=== PATIENT | female | born 1950 | race Caucasian/White ===

== ENCOUNTER → 2019-04-15 07:02 | Outpatient (CLI) | payer MEDICARE, SELFPAY ==
[2019-04-15 08:30] LABS: BUN Creatinine Ratio 28.9 (6-22); Blood Urea Nitrogen 26 mg/dL (7-17); Calcium 10.2 mg/dL (8.4-10.2); Carbon Dioxide 29 mmol/L (22-32); Chloride 101 mmol/L (98-107); Cholesterol 253 mg/dL (140-199); Estimated Glomerular Filt Rate > 60.0 mL/min (>60); Glucose 95 mg/dL (80-110); HDL Cholesterol 73 mg/dL (40-60); HEMOLYSIS < 15 (0-50); LDL Cholesterol Calculated 160 mg/dL (<100); Potassium 3.8 mmol/L (3.4-5.1); Sodium 138 mmol/L (137-145); Triglycerides 100 mg/dL (35-150)
[2019-04-15 09:02] LABS: Vitamin D 25 Hydroxy (D3) 46.3 ng/mL (30.0-100.0)
[2019-04-15 09:22] LABS: TSH w/ Reflex to FT4 2.01 uIU/mL (0.47-4.68)
== END ==
PROVIDERS: PCP Student in an Organized Health Care Education/Training Program; Visit Provider Student in an Organized Health Care Education/Training Program
DX: I10 Essential (primary) hypertension (principal); E78.00 Pure hypercholesterolemia, unspecified; E55.9 Vitamin D deficiency, unspecified; F41.9 Anxiety disorder, unspecified
CPT/HCPCS: 36415; 80048; 80061; 82306; 84443

== ENCOUNTER → 2019-05-14 12:57 | Outpatient (CLI) | payer MEDICARE, SELFPAY ==
--- NOTE | 2019-05-14 12:59 | DI.MG.S_ITS ---
BILATERAL DIGITAL SCREENING MAMMOGRAM 3D/2D WITH CAD: 05/14/2019 CLINICAL: Routine screening. Baseline exam. No prior exams were available for comparison. The tissue of both breasts is heterogeneously dense. This may lower the sensitivity of mammography. Current study was also evaluated with a Computer Aided Detection (CAD) system. There are benign vascular calcifications in both breasts. No significant masses, calcifications, or other findings are seen in either breast. IMPRESSION: There is no mammographic evidence of malignancy. A 1 year screening mammogram is recommended. This exam was interpreted at Station ID: [id number]. NOTE: For mammograms, a report in lay terms will be sent to the patient. Approximately 15% of breast malignancies will not be visualized mammographically. In the management of a palpable breast mass, a negative mammogram must not discourage biopsy of a clinically suspicious lesion. Electronically Signed By: Tonio bauman/benji:05/16/2019 08:38:15 letter sent: Normal Exam ACR BI-RADS Category 2: Benign Finding(s) 3342F
== END ==
PROVIDERS: PCP Student in an Organized Health Care Education/Training Program; Visit Provider Student in an Organized Health Care Education/Training Program
DX: Z12.31 Encounter for screening mammogram for malignant neoplasm of breast (principal)
CPT/HCPCS: 77063; 77067

== ENCOUNTER → 2019-05-18 14:06 | Outpatient (CLI) | payer MEDICARE, SELFPAY | PROVIDERS: PCP Student in an Organized Health Care Education/Training Program; Visit Provider Student in an Organized Health Care Education/Training Program | DX: Z13.820 Encounter for screening for osteoporosis (principal); M81.0 Age-related osteoporosis without current pathological fracture; Z78.0 Asymptomatic menopausal state; Z82.62 Family history of osteoporosis | CPT/HCPCS: 77080 ==

== ENCOUNTER 2020-06-06 15:56 | Emergency (ER) | payer MEDICARE, SELFPAY ==
[2020-06-06 16:00] VITALS: BP 178/101; PULSE 85; RESP 20; TEMP 36.6; O2SAT 98
[2020-06-06] MEDS: TET,DIPH,PERTUSS(ACELL),VAC/PF 0.5 ML SYRINGE IM (16:32)
--- NOTE | 2020-06-06 18:14 | ED.WOUNDLAC ---
HPI - Wound/Laceration <LEIANE Canales - Last Filed: 06/06/20 18:18> General Chief Complaint: Wound/Laceration Stated Complaint: LACERATION TO MIDDLE FINGER LEFT HAND Time Seen by Provider: 06/06/20 16:05 Source: patient Mode of arrival: Ambulatory History of Present Illness HPI narrative: 69-year-old female presenting to the emergency department for laceration to the tip of her 3rd right finger. Patient states she was using a mandoline when it slipped, it had been bleeding for approximately a half. Patient states when she arrived to the emergency department and the bandages were removed she noted the bleeding has stopped. Patient states her last Tdap was in 2011. She denies any numbness, tingling, other injuries, swelling, discharge, fevers, or chills. Related Data Previous Rx's Medication Instructions Recorded alendronate 70 mg tablet 70 mg PO QWEEK #90 tab 05/26/19 lisinopril 20 1 tab PO DAILY #90 tab 07/19/19 mg-hydrochlorothiazide 25 mg tablet Allergies Allergy/AdvReac Type Severity Reaction Status Date / Time crab [CRAB] Allergy Severe ANAPHYLACTIC Verified 03/18/18 16:03 SHOCK Review of Systems <ELIANE Canales - Last Filed: 06/06/20 18:18> Review of Systems Narrative: REVIEW OF SYSTEMS: GENERAL: Denies fever or chills. HENT: Denies head trauma. MUSCULOSKELETAL: Denies other injury, see HPI. INTEGUMENTARY: Complains of laceration to of right 3rd finger, see HPI. NEURO: Denies numbness or tingling. Patient History <ELIANE Canales - Last Filed: 06/06/20 18:18> Medical History Anxiety (06/26/15) Anxiety Chronic headaches Essential hypertension (06/26/15) Hyperlipemia Hypertension Pure hypercholesterolemia (06/24/16) Surgical History No history of previous surgery Social History Smoking Status: Former smoker Smoking Status: Former smoker Exam <ELIANE Canales - Last Filed: 06/06/20 18:18> Initial Vital Signs Initial Vital Signs: Vital Signs Temperature 97.9 F 06/06/20 16:00 Pulse Rate 85 06/06/20 16:00 Respiratory Rate 20 06/06/20 16:00 Blood Pressure 178/101 H 06/06/20 16:00 Pulse Oximetry 98 06/06/20 16:00 PHYSICAL EXAMINATION: GENERAL: Well groomed, alert, and cooperative. Answers questions promptly and appropriately. HENT: Normocephalic, atraumatic. RESPIRATORY: Normal respiratory rate, trachea midline, airway patent. No stridor, nasal flaring or accessory muscle use. MUSCULOSKELETAL: Normal gait and coordination. Equal tone and mass bilaterally. EXTREMITIES: CMS intact. Full range of motion against resistance of right 3rd finger. SKIN: Warm, dry, soft, appropriate color for ethnicity. There is a 1 cm superficial laceration noted to the tip of right 3rd finger, edges are approximated, bleeding is controlled upon arrival. No avulsions. NEURO: Alert and Oriented X 3. Good coordination. PSYCH: Appropriate affect and mood. <Ayden Hernandez DO - Last Filed: 06/07/20 07:11> Initial Vital Signs Initial Vital Signs: Vital Signs Temperature 97.9 F 06/06/20 16:00 Pulse Rate 85 06/06/20 16:00 Respiratory Rate 20 06/06/20 16:00 Blood Pressure 178/101 H 06/06/20 16:00 Pulse Oximetry 98 06/06/20 16:00 Procedures <ELIANE Canales - Last Filed: 06/06/20 18:18> Laceration Repair Laceration 1: Site: upper extremity Side (If applicable): right Size (cm): 1 Description: linear Depth: simple, single layer Skin layer closed with: dermabond Course <ELIANE Canalse - Last Filed: 06/06/20 18:18> Orders Ordered: Discontinued Medications Diphtheria/Tetanus/Acell Pertussis (Tet,Diph,Pertuss(Acell),Vac/Pf 0.5 Ml Syringe) 0.5 ml IM .ONCE ONE Stop: 06/06/20 16:26 Last Admin: 06/06/20 16:32 Dose: 0.5 ml Documented by: LESLEY Vital Signs Vital signs: Vital Signs - 8 hr 06/06/20 16:00 Temperature 97.9 F Pulse Rate 85 Respiratory Rate 20 Blood Pressure 178/101 H Pulse Oximetry 98 <Ayden Hernandez DO - Last Filed: 06/07/20 07:11> Orders Ordered: Discontinued Medications Diphtheria/Tetanus/Acell Pertussis (Tet,Diph,Pertuss(Acell),Vac/Pf 0.5 Ml Syringe) 0.5 ml IM .ONCE ONE Stop: 06/06/20 16:26 Last Admin: 06/06/20 16:32 Dose: 0.5 ml Documented by: LESLEY Vital Signs Vital signs: Vital Signs - 8 hr 06/06/20 16:00 Temperature 97.9 F Pulse Rate 85 Respiratory Rate 20 Blood Pressure 178/101 H Pulse Oximetry 98 MDM - Wound/Laceration <ELIANE Canales - Last Filed: 06/06/20 18:18> Medical Records Attestation: I reviewed the patient's medical records. Lab Data Attestation: I reviewed the patient's lab results. MDM Narrative Medical decision making narrative: 69-year-old female presents emergency department for a laceration. Upon examination, bleeding controlled laceration appears fairly superficial, no concern for tendon involvement given location and full range of motion of finger against resistance. Small amount of Dermabond was placed to the wound to prevent further bleeding. Tdap was updated as last tetanus was greater than 5 years ago. She was counseled extensively about signs of infection and when to return. Patient agreed to plan of care verbalized understanding. She was given a finger splint per request as she has lots of cooking to the wound would like her finger to be protected. Discharge Plan Departure Patient Disposition: Home Clinical Impression: Laceration Instructions: DI for Laceration Repair Activity Restrictions/Additional Instructions: Thank you for entrusting me with your care today. As discussed, a small amount of glue was placed on your laceration today. Please refrain from placing any bacitracin or Neosporin over the wound for the next 3 days as it will dissolve the glue too quickly. Avoid soaking her hand in any water for long periods of time. Showers are okay, washing your hands with soap and water is okay. While there is low-risk for infection at this time, retained foreign bodies and infection are always possible with any cut or break in the skin. Please monitor the wound closely and be re-evaluated immediately if you develop any signs of infection such as pus, increasing redness, increasing pain, fevers, or any other concerns. Prescriptions: No Action alendronate 70 mg tablet 70 mg PO QWEEK Qty: 90 RF: 1 lisinopril-hydrochlorothiazide 20-25 mg tablet 1 tab PO DAILY Qty: 90 RF: 1 Referrals: Kaleb Grover MD [Primary Care Provider] - <Ayden Hernandez DO - Last Filed: 06/07/20 07:11> Cosign ED Attending Cosignature Attestation: Dr Hernandez Co-Sign Statement: I was available for consultation during this patient's emergency department visit. This chart is signed by myself for administrative purposes only. I did not have direct contact with this patient during this visit. They were seen independently by the APC.
== END 2020-06-06 16:42 | disposition home or self-care (01) ==
PROVIDERS: Emergency Provider Nurse Practitioner; PCP Student in an Organized Health Care Education/Training Program
DX: S61.212A Laceration without foreign body of right middle finger without damage to nail, initial encounter (principal); W26.8XXA Contact with other sharp object(s), not elsewhere classified, initial encounter; Z23 Encounter for immunization
CPT/HCPCS: 90471; 99282; 99283; STOP; 90715

== ENCOUNTER → 2020-08-07 09:47 | Outpatient (CLI) | payer MEDICARE, SELFPAY ==
[2020-08-07] MEDS: COVID-19 VACC #1, MRNA(MOD) 100 MCG/0.5 ML VIAL IM (09:55)
== END ==
PROVIDERS: PCP Student in an Organized Health Care Education/Training Program; Visit Provider Internal Medicine
DX: Z23 Encounter for immunization (principal)
CPT/HCPCS: 0011A; 91301

== ENCOUNTER → 2020-09-04 09:57 | Outpatient (CLI) | payer MEDICARE, SELFPAY ==
[2020-09-04] MEDS: COVID-19 VACC #2, MRNA(MOD) 100 MCG/0.5 ML VIAL IM (10:13)
== END ==
PROVIDERS: PCP Student in an Organized Health Care Education/Training Program; Visit Provider Internal Medicine
DX: Z23 Encounter for immunization (principal)
CPT/HCPCS: 0012A; 91301

== ENCOUNTER → 2021-03-27 07:15 | Outpatient (CLI) | payer MEDICARE, SELFPAY ==
[2021-03-27 09:04] LABS: BUN Creatinine Ratio 26.1 (6-22); Blood Urea Nitrogen 24 mg/dL (7-17); Calcium 10.2 mg/dL (8.4-10.2); Carbon Dioxide 33 mmol/L (22-32); Chloride 104 mmol/L (98-107); Cholesterol 255 mg/dL (140-199); Estimated Glomerular Filt Rate > 60.0 mL/min (>60); Glucose 99 mg/dL (80-110); HDL Cholesterol 79 mg/dL (40-60); HEMOLYSIS < 15 (0-50); LDL Cholesterol Calculated 157 mg/dL (<100); Potassium 3.6 mmol/L (3.4-5.1); Sodium 141 mmol/L (137-145); Triglycerides 93 mg/dL (35-150)
[2021-03-27 09:35] LABS: TSH w/ Reflex to FT4 1.55 uIU/mL (0.47-4.68)
== END ==
PROVIDERS: PCP Student in an Organized Health Care Education/Training Program; Referring Provider Student in an Organized Health Care Education/Training Program; Visit Provider Student in an Organized Health Care Education/Training Program
DX: I10 Essential (primary) hypertension (principal); E78.00 Pure hypercholesterolemia, unspecified; F41.9 Anxiety disorder, unspecified
CPT/HCPCS: 36415; 80048; 80061; 84443

== ENCOUNTER → 2021-04-25 10:02 | Outpatient (CLI) | payer MEDICARE, SELFPAY ==
--- NOTE | 2021-04-25 10:05 | DI.RAD.S_ITS ---
PROCEDURE: XR DEXA AXIAL SKELETON INDICATIONS: Osteoporosis surveillance COMPARISON: [facility], CR, XR DEXA AXIAL SKELETON, 05/18/2019, 14:38. FINDINGS: This blank DEXA report has been sent in error by the PACS system. The correct and complete report will be forthcoming in 1-2 days. Thank you for your patience and understanding. Dictated by: Ollie Tolbert M.D. on 04/25/2021 at 11:51 Approved by: Ollie Tolbert M.D. on 04/25/2021 at 11:52
== END ==
PROVIDERS: PCP Student in an Organized Health Care Education/Training Program; Referring Provider Student in an Organized Health Care Education/Training Program; Visit Provider Student in an Organized Health Care Education/Training Program
DX: M81.0 Age-related osteoporosis without current pathological fracture (principal); Z78.0 Asymptomatic menopausal state; M85.852 Other specified disorders of bone density and structure, left thigh; M85.851 Other specified disorders of bone density and structure, right thigh
CPT/HCPCS: 77080

== ENCOUNTER → 2021-05-03 15:21 | Outpatient (CLI) | payer MEDICARE, SELFPAY ==
--- NOTE | 2021-05-03 15:23 | DI.MG.S_ITS ---
BILATERAL DIGITAL SCREENING MAMMOGRAM 3D/2D WITH CAD: 05/03/2021 CLINICAL: Routine screening. Comparison is made to exam dated: 05/14/2019 [facility]. The tissue of both breasts is heterogeneously dense. This may lower the sensitivity of mammography. Current study was also evaluated with a Computer Aided Detection (CAD) system. There is a possible developing new irregular equal density asymmetry in the right breast at 11 o'clock middle depth. No other significant masses, calcifications, or other findings are seen in either breast. IMPRESSION: INCOMPLETE: NEEDS ADDITIONAL IMAGING EVALUATION The possible developing new irregular equal density asymmetry in the right breast is indeterminate. Additional views with possible ultrasound are recommended. This exam was interpreted at Station ID: [id number]. NOTE: For mammograms, a report in lay terms will be sent to the patient. Approximately 15% of breast malignancies will not be visualized mammographically. In the management of a palpable breast mass, a negative mammogram must not discourage biopsy of a clinically suspicious lesion. Electronically Signed By: Rosa moon/:05/06/2021 07:29:50 letter sent: Additional Imaging Needed ACR BI-RADS Category 0: Incomplete 3340F
== END ==
PROVIDERS: PCP Student in an Organized Health Care Education/Training Program; Referring Provider Student in an Organized Health Care Education/Training Program; Visit Provider Student in an Organized Health Care Education/Training Program
DX: Z12.31 Encounter for screening mammogram for malignant neoplasm of breast (principal)
CPT/HCPCS: 77063; 77067

== ENCOUNTER → 2021-05-27 08:33 | Outpatient (CLI) | payer MEDICARE, SELFPAY ==
--- NOTE | 2021-05-27 08:34 | DI.MG.S_ITS ---
UNILATERAL RIGHT DIGITAL DIAGNOSTIC MAMMOGRAM 3D/2D WITH ADDITIONAL VIEWS: 05/27/2021 CLINICAL: Additional evaluation requested from prior study. Comparison is made to exams dated: 05/03/2021 mammogram and 05/14/2019 mammogram - [facility]. The tissue of right breast is heterogeneously dense. This may lower the sensitivity of mammography. The benign irregular equal density asymmetry in the right breast at 11 o'clock middle depth is no longer seen. This is not seen in additional views. No other significant masses or calcifications are seen in the breast. IMPRESSION: BENIGN There is no mammographic evidence of malignancy. Return to annual mammogram screening schedule is recommended. This exam was interpreted at Station ID: [id number]. NOTE: For mammograms, a report in lay terms will be sent to the patient. Approximately 15% of breast malignancies will not be visualized mammographically. In the management of a palpable breast mass, a negative mammogram must not discourage biopsy of a clinically suspicious lesion. Electronically Signed By: Job Burks acr/:05/27/2021 09:08:37 letter sent: Normal Exam ACR BI-RADS Category 2: Benign Finding(s) 3342F
== END ==
PROVIDERS: PCP Student in an Organized Health Care Education/Training Program; Referring Provider Student in an Organized Health Care Education/Training Program; Visit Provider Student in an Organized Health Care Education/Training Program
DX: R92.8 Other abnormal and inconclusive findings on diagnostic imaging of breast (principal); N63.10 Unspecified lump in the right breast, unspecified quadrant
CPT/HCPCS: 77065; G0279

== ENCOUNTER → 2023-02-03 14:10 | Outpatient (CLI) | payer MEDICARE, SELFPAY ==
--- NOTE | 2023-02-03 14:11 | DI.MG.S_ITS ---
BILATERAL DIGITAL SCREENING MAMMOGRAM 3D/2D WITH CAD: 02/03/2023 CLINICAL: Routine screening. Comparison is made to exams dated: 05/03/2021 mammogram, 05/14/2019 mammogram, and 05/27/2021 mammogram - . Both breasts are heterogeneously dense, which may obscure small masses (category c / 51-75% glandular tissue). Current study was also evaluated with a Computer Aided Detection (CAD) system. No significant masses, calcifications, or other findings are seen in either breast. There has been no significant interval change. IMPRESSION: NEGATIVE There is no mammographic evidence of malignancy. A 1 year screening mammogram is recommended. Based on the Tyrer Cuzick model (a risk assessment model) the patient's lifetime risk is 4.9% and her 10 year risk is 3.1%. According to the ACR, ACS, and NCCN guidelines, an annual breast MRI exam along with mammogram is recommended if the patient's lifetime risk is 20% or greater. This exam was interpreted at Station ID: [id number]. NOTE: For mammograms, a report in lay terms will be sent to the patient. Approximately 15% of breast malignancies will not be visualized mammographically. In the management of a palpable breast mass, a negative mammogram must not discourage biopsy of a clinically suspicious lesion. Electronically Signed By: Keanu portillo/benji:02/03/2023 16:02:49 letter sent: Normal Exam ACR BI-RADS Category 1: Negative 3341F
--- NOTE | 2023-02-03 15:08 | DI.DEXA.S_ITS ---
Bone Density Report Name: L[facility] Age: 72 Sex: Female Ethnicity: White Date of : 1950 Indication: postmenopausal osteoporosis; Referring Provider: FRANC LEMA Study: Bone densitometry was performed. Exam Date: February 03, 2023 Accession number: [id number] Bone Density: Region BMD T-score Z-score Classification AP Spine(L1-L4) 0.624 -3.8 -1.7 Osteoporosis Femoral Neck (Left) 0.585 -2.4 -0.6 Osteopenia Total Hip (Left) 0.683 -2.1 -0.6 Osteopenia Femoral Neck (Right) 0.560 -2.6 -0.8 Osteoporosis Total Hip (Right) 0.672 -2.2 -0.7 Osteopenia Total Hip Mean 0.678 -2.2 -0.7 Osteopenia World Health Organization criteria for BMD impression classify patients as: Normal (T-score at or above -1.0), Osteopenia (T-score between -1.0 and -2.5), or Osteoporosis (T-score at or below -2.5). 10-year Fracture Risk: FRAX not reported because: Some T-score for Spine Total or Hip Total or Femoral Neck at or below -2.5 Previous Exams: -- Region Exam Age BMD T-score BMD Change BMD Change Date g/cm2 vs Baseline vs Previous -- AP Spine (L1-L4) 02/03/2023 72 0.624 -3.8 -0.070 (-10.1%)# -0.070 (-10.1%)# 04/25/2021 70 0.695 -3.2 Total Hip(Left) 02/03/2023 72 0.683 -2.1 -0.046 (-6.4%)# -0.046 (-6.4%)# 04/25/2021 70 0.730 -1.7 Total Hip(Right) 02/03/2023 72 0.672 -2.2 -0.056 (-7.7%)# -0.056 (-7.7%)# 04/25/2021 70 0.729 -1.7 -- *Denotes significance at 95% confidence level, LSC for AP Spine = 0.022 g/cm2, LSC for Total Hip = 0.027 g/cm2 # Denotes dissimilar scan types or analysis methods Impression: The patient has osteoporosis, based on the Total Spine T-score. No significant bone loss was observed. Discussion: INCREASED RISK OF FRACTURE. BONE DENSITY IS UNDESIRABLY LOW AT ONE OR MORE SKELETAL SITES, CONSISTENT WITH POSTMENOPAUSAL OSTEOPOROSIS. This patient's lowest T-score meets the World Health Organization's (WHO) criteria for osteoporosis at one or more sites (T-score -2.5 or below). In untreated patients, the risk of osteoporotic fracture increases approximately two-fold for each 1.0 SD decrease in T-score. Low bone density is not the only risk factor for fracture; also consider factors such as patient's age, frailty or poor health, risk of falling, risk of injury, previous osteoporotic fracture, family history of osteoporosis, cigarette smoking, low body weight, etc. Not everyone with low bone mineral density has osteoporosis; osteomalacia and other metabolic bone disorders should also be considered. Patients who have osteoporosis should be evaluated for specific diseases and conditions (secondary causes) that may cause or contribute to bone loss. The [place] [employer] Endocrinologists (AACE) and National Osteoporosis Foundation (NOF) recommend pharmacologic intervention for all postmenopausal women whose T-score is in this range. The patient should follow a healthful lifestyle (good nutrition with adequate calcium and vitamin D, and appropriate weight-bearing exercise). Follow-Up: Consider a repeat BMD and Vertebral Fracture Assessment (VFA) exam in 2 years or sooner if medically necessary, to reassess this patient's status. Reported by: ALEJANDRO PRATT M.D. on 02/03/2023 3:21:00 PM.
== END ==
PROVIDERS: PCP Pediatrics; Referring Provider Pediatrics; Visit Provider Pediatrics
DX: Z12.31 Encounter for screening mammogram for malignant neoplasm of breast (principal); Z78.0 Asymptomatic menopausal state; M81.0 Age-related osteoporosis without current pathological fracture
CPT/HCPCS: 77063; 77067; 77080

== ENCOUNTER → 2024-02-10 14:23 | Outpatient (CLI) | payer MEDICARE, SELFPAY ==
[2024-02-10 14:51] LABS: Hematocrit 38.3 % (36-46); Hemoglobin 12.6 g/dL (12.0-16.0); Mean Corpuscular HGB Conc 32.9 % (30-36); Mean Corpuscular Volume 91.1 fL (80-100); Platelet Count 308 X10^3/uL (150-400); Red Cell Distribution Width 14.1 % (11.6-14.8); White Blood Cell Count 5.5 X10^3/uL (4.5-11.0)
[2024-02-10 15:14] LABS: Alanine Aminotransferase 17 IU/L (<35); Albumin 4.5 g/dL (3.5-5.0); Albumin Globulin Ratio 1.6 (1.0-2.8); Alkaline Phosphatase 72 U/L (38-126); Aspartate Aminotransferase 31 IU/L (14-36); BUN Creatinine Ratio 24.4 (6-22); Bilirubin Total 0.4 mg/dL (0.2-1.3); Blood Urea Nitrogen 21 mg/dL (7-17); Calcium 10.1 mg/dL (8.4-10.2); Carbon Dioxide 27 mmol/L (22-32); Chloride 104 mmol/L (98-107); Cholesterol 251 mg/dL (140-199); Estimated Glomerular Filt Rate > 60 mL/min (>60); Globulin 2.8 g/dL (1.7-4.1); Glucose 98 mg/dL (80-110); HDL Cholesterol 103 mg/dL (40-60); HEMOLYSIS < 15 (0-50); LDL Cholesterol Calculated 122 mg/dL (<100); Sodium 138 mmol/L (137-145); Total Protein 7.3 g/dL (6.3-8.2); Triglycerides 131 mg/dL (35-150)
[2024-02-10 15:43] LABS: TSH w/ Reflex to FT4 1.03 uIU/mL (0.47-4.68)
== END ==
LOC: LAB 14:24
PROVIDERS: PCP Internal Medicine; Referring Provider Internal Medicine; Visit Provider Internal Medicine
DX: E78.2 Mixed hyperlipidemia (principal); I10 Essential (primary) hypertension
CPT/HCPCS: 36415; 80053; 80061; 84443; 85027

== ENCOUNTER 2024-12-01 20:02 | Emergency (ER) | payer MEDICARE, SELFPAY ==
[2024-12-01] VITALS (10 sets, daily range): BP systolic 200–230; BP diastolic 107–117; PULSE 64–83; RESP 18; TEMP 36.4; O2SAT 94–100; BMI 27.1
--- NOTE | 2024-12-01 21:54 | DI.RAD.S_ITS ---
PROCEDURE: XR CHEST 1V INDICATIONS: Chest Pain TECHNIQUE: One view of the chest was acquired. COMPARISON: None. FINDINGS: Surgical changes and devices: None. Lungs and pleura: No consolidation. Prominent pulmonary vasculature markings. No pleural effusions or pneumothorax. Mediastinum: Mediastinal contours appear normal. Heart size is normal. Bones and chest wall: No suspicious bony lesions. Overlying soft tissues appear unremarkable. IMPRESSION: Suspect mild fluid overload. Dictated by: Keanu Fiore M.D. on 12/01/2024 at 22:52 Approved by: Keanu Fiore M.D. on 12/01/2024 at 22:53
--- NOTE | 2024-12-01 21:56 | DI.CT.S_ITS ---
PROCEDURE: CT HEAD/BRAIN WO CON INDICATIONS: hypertension TECHNIQUE: Noncontrast 4.5 mm thick angled axial sections acquired from the foramen magnum to the vertex, with coronal and sagittal reformats. For radiation dose reduction, the following was used: automated exposure control, adjustment of mA and/or kV according to patient size. COMPARISON: None. FINDINGS: Image quality: Diagnostic. CSF spaces: Basal cisterns are patent. No extra-axial fluid collections. Ventricles are normal in size and shape. Brain: No midline shift. No intracranial mass effect or hemorrhage. Drummond-white matter interface is within normal limits. Skull and face: Calvarium and visualized facial bones are intact, without suspicious lesions. Sinuses: Visualized sinuses and mastoids are clear. IMPRESSION: No acute intracranial pathology. Dictated by: Keanu Fiore M.D. on 12/01/2024 at 22:55 Approved by: Keanu Fiore M.D. on 12/01/2024 at 22:57
--- NOTE | 2024-12-01 22:05 | PC.NURSE ---
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
[2024-12-01 22:13] LABS: Add Manual Diff / Slide Review NO; Basophils Absolute Auto 0 /uL (0-100); Basophils Percent Auto 0.7 % (0-2); Eosinophils Absolute Auto 100 /uL (0-450); Eosinophils Percent Auto 1.8 % (2-4); Hematocrit 40.4 % (36-46); Hemoglobin 13.5 g/dL (12.0-16.0); Lymphocytes Absolute Auto 2000 /uL (1100-4500); Lymphocytes Percent Auto 31.8 % (25-40); Mean Corpuscular HGB Conc 33.4 % (30-36); Mean Corpuscular Hemoglobin 30.4 PG (26-34); Monocytes Absolute Auto 400 /uL (0-900); Monocytes Percent Auto 6.1 % (3-14); Neutrophils Absolute Auto 3800 /uL (1500-7000); Neutrophils Percent Auto 59.6 % (50-75); Platelet Count 262 X10^3/uL (150-400); Red Blood Cell Count 4.44 X10^6/uL (4.0-5.2); Red Cell Distribution Width 13.9 % (11.6-14.8); White Blood Cell Count 6.3 X10^3/uL (4.5-11.0)
[2024-12-01 22:16] LABS: INR 0.9 (0.9-1.3); Prothrombin Time 10.5 SECONDS (9.4-12.5)
[2024-12-01 22:19] LABS: PTT Partial Thromboplastin Tim 32 SECONDS (25.1-36.5)
[2024-12-01 22:21] LABS: Alanine Aminotransferase 31 IU/L (<35); Albumin 4.9 g/dL (3.5-5.0); Albumin Globulin Ratio 1.6 (1.0-2.8); Alkaline Phosphatase 79 U/L (38-126); Aspartate Aminotransferase 46 IU/L (14-36); BUN Creatinine Ratio 23.8 (6-22); Bilirubin Total 0.5 mg/dL (0.2-1.3); Blood Urea Nitrogen 19 mg/dL (7-17); Calcium 10.3 mg/dL (8.4-10.2); Carbon Dioxide 28 mmol/L (22-32); Chloride 102 mmol/L (98-107); Creatine Kinase 161 U/L (30-135); Estimated Glomerular Filt Rate > 60 mL/min (>60); Globulin 3.1 g/dL (1.7-4.1); Glucose 108 mg/dL (70-99); HEMOLYSIS < 15 (0-50); Lipase 130 U/L (23-300); Magnesium 1.9 mg/dL (1.6-2.3); Potassium 3.7 mmol/L (3.4-5.1); Sodium 138 mmol/L (137-145)
[2024-12-01 22:33] LABS: NT-proBNP (BNP-Adult 18+) 432 pg/mL (<125); Troponin I < 0.012 ng/mL (0.01-0.034)
[2024-12-01] MEDS: METOPROLOL IR 25 MG TABLET PO (23:44)
[2024-12-02] VITALS: BP 202/116; PULSE 63; O2SAT 97
[2024-12-02 00:30] VITALS: BP 192/98; PULSE 64; RESP 16; O2SAT 94
[2024-12-02 00:44] VITALS: BP 214/104; PULSE 60; RESP 16; O2SAT 96
[2024-12-02 01:00] VITALS: PULSE 58; O2SAT 96
[2024-12-02 01:01] VITALS: BP 196/102; PULSE 59; O2SAT 96
--- NOTE | 2024-12-02 01:21 | ED_ITS ---
HPI - General Adult General Chief complaint: Hypertension Stated complaint: high BP, headache Time Seen by Provider: 12/01/24 23:33 Source: patient, RN notes reviewed and old records reviewed Mode of arrival: Ambulatory Limitations: no limitations History of Present Illness HPI narrative: 74-year-old female history of hypertension, dyslipidemia, anxiety who had a follow up appointment with primary care on the 30 of November was noted to have elevated blood pressure she states they rechecked in the office after some time was still elevated was told to rechecked over the next 2 weeks. Patient went home today was checking her blood pressure as advised had 185/108 and a systolic of 200 at 1 point reached out to her physician who told her to take an additional dose of lisinopril which she did and rechecked in a couple hours but was still quite elevated. Patient states she had a mild headache today but it was prone to headaches states that is not atypical. Denies chest pain or pressure, no shortness of breath, no diaphoresis. No nausea or vomiting. No dizziness or fatigue. No new swelling in extremities. No other GI or urinary symptoms. Patient states she was normally on 20 mg lisinopril in the morning, take statin 10 mg nightly, takes propranolol rarely for anxiety. She takes an aspirin [id number] most days. Denies any prior surgeries. Reports an allergy to crab but no other medication allergies. No tobacco, alcohol or recreational drugs. States she just established with Dr. Cifuentes for her primary care physician. Patient states she has follow up in 2 weeks with the primary care. Related Data Previous Rx's Medication Instructions Recorded lisinopril 20 mg tablet 20 mg PO DAILY #90 tabs 02/10/24 rosuvastatin 10 mg tablet 10 mg PO DAILY #90 tabs 02/10/24 propranolol 20 mg tablet 20 mg PO BID PRN anxiety #30 tabs 11/09/24 metoprolol succinate 25 mg 12.5 mg (1/2 x 25 mg) PO DAILY #14 12/02/24 tablet,extended release 24 hr tabs Allergies Allergy/AdvReac Type Severity Reaction Status Date / Time crab [CRAB] Allergy Severe ANAPHYLACTIC Verified 11/30/24 13:53 SHOCK Review of Systems Review of Systems ROS Unobtainable: All systems reviewed & are unremarkable except as noted in HPI and below Patient History Medical History Age-related osteoporosis without current pathological fracture Mixed hyperlipidemia Chronic headaches Anxiety Anxiety (06/26/15) Essential hypertension (06/26/15) Surgical History No history of previous surgery Social History details: (Edilberto), son with OCD, retired Exam Narrative Exam Narrative: GEN: well nourished, well appearing female, alert and oriented x 3, patient appears to be in mild distress. HEENT: Atraumatic, pupils are equal round reactive to light, extraocular movements are intact, nares are clear, there is no conjunctival pallor. Throat is clear without any exudates, erythema, tonsillar enlargement or uvular deviation, no facial droop HEART: Regular rate and rhythm without murmur, clicks, rubs. Pulses are equal in upper and lower extremities LUNGS:Lungs clear to auscultation, no wheezes, rales, crackles, chest moves symmetrically ABD:bowel sounds normal, soft, non-tender, no guarding, rebound, rigidity, no masses noted, no hepatosplenomegaly MSCL: Non-tender, no muscle atrophy, muscles strength 5/5 upper and lower extremities, full range of motion, normal gait NEURO:CN 2-12 intact, sensation normal. Initial Vital Signs Initial Vital Signs: Vital Signs Temperature 97.6 F 12/01/24 20:28 Pulse Rate 78 12/01/24 20:28 Respiratory Rate 18 12/01/24 20:28 Blood Pressure 230/115 H 12/01/24 20:28 Pulse Oximetry 97 12/01/24 20:28 Oxygen Delivery Method Room Air 12/01/24 20:28 Course Orders Ordered: ED Orders 12/01/24 21:35 EKG-12 Lead Stat 12/01/24 21:54 XR chest 1V Stat 12/01/24 21:56 CT head/brain wo con Stat 12/01/24 22:01 Complete Blood Count AUTO DIFF Stat Comprehensive Metabolic Panel Stat Lipase Stat Magnesium Stat NT-proBNP (BNP-Adult 18+) Stat PTT Partial Thromboplastin Rebel Stat Prothrombin Time INR Stat Troponin & CK Cardiac Panel Stat Discontinued Medications Aspirin (Aspirin 81 Mg Chew Tab) 324 mg PO NOW ONE Stop: 12/01/24 21:54 Last Admin: 12/01/24 23:54 Dose: Not Given Documented By: FERNANDO Metoprolol Tartrate (Metoprolol Ir 25 Mg Tablet) 25 mg PO NOW ONE Stop: 12/01/24 23:34 Last Admin: 12/01/24 23:44 Dose: 25 mg Documented By: FERNANDO Vital Signs Vital signs: Vital Signs - 8 hr 12/01/24 20:28 12/01/24 21:31 12/01/24 21:32 Temperature 97.6 F Pulse Rate 78 68 Respiratory Rate 18 Blood Pressure 230/115 H 229/113 H Pulse Oximetry 97 94 Oxygen Delivery Method Room Air 12/01/24 21:32 12/01/24 21:53 12/01/24 21:53 Temperature Pulse Rate 67 70 Respiratory Rate Blood Pressure 226/115 H Pulse Oximetry 99 100 Oxygen Delivery Method Room Air 12/01/24 22:00 12/01/24 22:00 12/01/24 22:30 Temperature Pulse Rate 71 68 Respiratory Rate Blood Pressure 202/117 H Pulse Oximetry 99 99 Oxygen Delivery Method Room Air Room Air 12/01/24 23:00 12/01/24 23:23 12/01/24 23:23 Temperature Pulse Rate 64 75 Respiratory Rate Blood Pressure 223/107 H Pulse Oximetry 96 98 Oxygen Delivery Method Room Air 12/01/24 23:24 12/01/24 23:30 12/01/24 23:30 Temperature Pulse Rate 83 68 Respiratory Rate 18 Blood Pressure 223/107 H 200/112 H Pulse Oximetry 98 97 Oxygen Delivery Method Room Air 12/02/24 00:00 12/02/24 00:00 12/02/24 00:30 Temperature Pulse Rate 63 64 Respiratory Rate 16 Blood Pressure 202/116 H Pulse Oximetry 97 94 Oxygen Delivery Method Room Air 12/02/24 00:30 12/02/24 00:44 12/02/24 00:44 Temperature Pulse Rate 60 Respiratory Rate 16 Blood Pressure 192/98 H 214/104 H Pulse Oximetry 96 Oxygen Delivery Method Room Air 12/02/24 01:00 12/02/24 01:01 12/02/24 01:01 Temperature Pulse Rate 58 L 59 L Respiratory Rate Blood Pressure 196/102 H Pulse Oximetry 96 96 Oxygen Delivery Method Room Air Room Air 12/02/24 01:30 12/02/24 01:30 Temperature Pulse Rate 58 L Respiratory Rate Blood Pressure 184/93 H Pulse Oximetry 97 Oxygen Delivery Method Room Air Medical Decision Making Lab Data 12/01/24 22:01 12/01/24 22:01 Labs: Lab Results 12/01/24 Range/Units 22:01 WBC 6.3 (4.5-11.0) X10^3/uL RBC 4.44 (4.0-5.2) X10^6/uL Hgb 13.5 (12.0-16.0) g/dL Hct 40.4 (36-46) % MCV 91.0 (80-100) fL MCH 30.4 (26-34) PG MCHC 33.4 (30-36) % RDW 13.9 (11.6-14.8) % Plt Count 262 (150-400) X10^3/uL Neut % (Auto) 59.6 (50-75) % Lymph % (Auto) 31.8 (25-40) % [place] % (Auto) 6.1 (3-14) % Eos % (Auto) 1.8 L (2-4) % Baso % (Auto) 0.7 (0-2) % Neut # (Auto) 3800 (5000-5773) /uL Lymph # (Auto) 2000 (9652-4918) /uL [place] # (Auto) 400 (0-900) /uL Eos # (Auto) 100 (0-450) /uL Baso # (Auto) 0 (0-100) /uL PT 10.5 (9.4-12.5) SECONDS INR 0.9 (0.9-1.3) APTT 32 (25.1-36.5) SECONDS Sodium 138 (137-145) mmol/L Potassium 3.7 (3.4-5.1) mmol/L Chloride 102 (98-107) mmol/L Carbon Dioxide 28 (22-32) mmol/L BUN 19 H (7-17) mg/dL Creatinine 0.80 (0.52-1.04) mg/dL Estimated GFR > 60 (>60) mL/min BUN/Creatinine Ratio 23.8 H (6-22) Glucose 108 H (70-99) mg/dL Calcium 10.3 H (8.4-10.2) mg/dL Magnesium 1.9 (1.6-2.3) mg/dL Total Bilirubin 0.5 (0.2-1.3) mg/dL AST 46 H (14-36) IU/L ALT 31 (<35) IU/L Alkaline Phosphatase 79 (38-126) U/L Total Creatine Kinase 161 H (30-135) U/L Troponin I < 0.012 (0.01-0.034) ng/mL NT-Pro-B Natriuret Pep 432 H (<125) pg/mL Total Protein 8.0 (6.3-8.2) g/dL Albumin 4.9 (3.5-5.0) g/dL Globulin 3.1 (1.7-4.1) g/dL Albumin/Globulin Ratio 1.6 (1.0-2.8) Lipase 130 (23-300) U/L ECG Data Attestation: I personally reviewed and interpreted this ECG as follows: Prior ECG tracings: not available for review Interpretation: EKG shows sinus rhythm, right bundle-branch block, rate of 70 CT 148, QRS of 132 QTC of [address] elevation depression. No priors for comparison. MDM Narrative Medical decision making narrative: Labs show normal white count hemoglobin and platelets, coags are negative, BUN 19, electrolytes are appropriate creatinine 0.8 glucose is 108 calcium is 10.3 Mag 1.9 bilirubin is 0.5, AST is 46 ALT of 31 alk-phos is 79 lipase is 130. Belle CK is 161 troponins less than 0.012 with a BNP of 432. Chest x-ray shows suspected mount fluid overload. Patient was prominent pulmonary vascular markings no pleural effusions or pneumothorax. Head CT shows no acute change. EKG shows sinus rhythm, right bundle-branch block, rate of 70 CT 148, QRS of 132 QTC of [address] elevation depression. No priors. 74-year-old female history of hypertension states she has not had her blood pressure checked in a very long time went to follow up with a new primary care was elevated in the office was supposed to check her blood pressure for the next 2 weeks and it was getting quite elevated 180s to 200 systolic. She did take an extra dose of lisinopril at the direction of her physician did not improving so she presents. She was had some mild headache which he states is normal for her no other symptoms. No end-organ damage appreciated on her workup today. Patient did not have a dose of metoprolol here this evening and has been trending down words overall throughout her stay. Discussed with patient we will have her take 40 mg lisinopril in the morning and continue to monitor blood pressures can take oral dose of metoprolol in the afternoon or evening if still elevated. Discussed she can also talk with your physician for adjustment of her medications. Discussed return precautions. Patient feels comfortable with this plan. Discharge Plan Departure Patient Disposition: Home Clinical Impression: Hypertension Instructions: DI for High Blood Pressure Activity Restrictions/Additional Instructions: Your blood pressure was quite elevated today I would recommend that you take 40 mg (2 tablets) of lisinopril in the morning. If your blood pressure is improved and running less than 180 systolic or 95 diastolic continue to monitor it at home and keep a record for your physician. If it was more elevated than this you can add the metoprolol once daily. A prescription was sent to [facility] in [place] for the metoprolol. Please reach out to your physician if you are blood pressure continues to be elevated. Do not take your propranolol while taking metoprolol. Return to the emergency department if you are having severe headaches, new chest pain, new shortness of breath, lightheadedness or passing out, new swelling of your extremities nausea or vomiting or other new or concerning changes. Prescriptions: New metoprolol succinate 25 mg tablet extended release 24 hr 12.5 mg PO DAILY Qty: 14 0RF No Action propranolol 20 mg tablet 20 mg PO BID PRN (Reason: anxiety) Qty: 30 3RF lisinopril 20 mg tablet 20 mg PO DAILY Qty: 90 3RF rosuvastatin 10 mg tablet 10 mg PO DAILY Qty: 90 3RF Referrals: Eliecer Rogel MD [Primary Care Provider] - Frances Gill MD [Physician] - Stand Alone Forms: Patient Portal/API/Survey
[2024-12-02 01:30] VITALS: BP 184/93; PULSE 58; O2SAT 97
--- NOTE | 2024-12-07 21:40 | EKG_ITS ---
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
== END 2024-12-02 01:50 | disposition home or self-care (01) ==
PROVIDERS: Emergency Provider Emergency Medicine; PCP Internal Medicine
DX: I10 Essential (primary) hypertension (principal); R51.9 Headache, unspecified; I45.10 Unspecified right bundle-branch block
CPT/HCPCS: 36415; 70450; 71045; 80053; 82550; 83690; 83735; 83880; 84484; 85025; 85610; 85730; 93005; 99284

== ENCOUNTER → 2025-04-05 14:04 | Outpatient (CLI) | payer MEDICARE, SELFPAY ==
--- NOTE | 2025-04-05 14:06 | DI.MG.S_ITS ---
MM screening mammo BI: 04/05/2025. BI-RADS: 1 CLINICAL: 74-year old female for bilateral screening mammogram. Tyrer-Cuzick lifetime risk of 3.0%. No personal or first-degree family history of breast cancer. PRIOR EXAMS 02/03/2023, 05/27/2021, 05/03/2021, 05/14/2019. MAMMOGRAPHY TECHNIQUE: 2D and 3D (tomosynthesis) digital mammographic views obtained, with additional images as needed for full coverage. Current study was also evaluated with a Computer Aided Detection (CAD) system. DENSITY C. The breasts are heterogeneously dense, which may obscure small masses. MAMMOGRAPHY FINDINGS Bilateral: No suspicious mass, asymmetry, microcalcification, or other abnormality seen. IMPRESSION: * No evidence of malignancy. RECOMMENDATIONS Bilateral * Annual screening mammography. OVERALL ASSESSMENT CATEGORY BI-RADS-1: Negative. The [employer] recommends annual screening mammography beginning at age 40 for women with average risk of breast cancer. ELECTRONICALLY SIGNED: Josselyn Edgar M.D. on 04/05/2025 at 04:42:22 PM PT Interpreting Station ID: [id number]
== END ==
LOC: MAMMO 14:05
PROVIDERS: PCP Family Medicine; Referring Provider Family Medicine; Visit Provider Family Medicine
DX: Z12.31 Encounter for screening mammogram for malignant neoplasm of breast (principal); R92.333 Mammographic heterogeneous density, bilateral breasts
CPT/HCPCS: 77063; 77067